=== PATIENT | female | born 1990 | race Asian ===

== ENCOUNTER 2017-08-06 11:13 | Inpatient (IN) | payer OTHER ==
[~2017-08-06] VITALS: Ht 154.9 cm; Wt 60.0 kg
[2017-08-06 11:53] VITALS: BP 119/64
[2017-08-06] MEDS ORDERED: PREN-3 PO (12:00)
[2017-08-06] MEDS: D5%-LACTATED RINGERS 1,000 ML IV SCH ×2 (13:22→21:22)
[2017-08-06] MEDS ORDERED: OXYTOCIN 30U/ 0.9% NaCL 500ML 500 ML IV ONE (13:22)
[2017-08-06] MEDS ORDERED: OXYTOCIN 30U/ 0.9% NaCL 500ML 500 ML IV PRN (13:22)
[2017-08-06] MEDS ORDERED: FENTANYL PF 100 MCG/2ML IVPush PRN (13:30)
[2017-08-06] MEDS ORDERED: SODIUM CITRATE/CITRIC ACID 30 ML UDC PO PRN (13:30)
[2017-08-06] MEDS ORDERED: ONDANSETRON 2MG/ML, 2ML IVPush PRN (13:30)
[2017-08-06] MEDS ORDERED: CALCIUM CARBONATE 500 MG TAB.CHEW PO PRN (13:30)
[2017-08-06] MEDS ORDERED: NEWBORN KIT ONE (13:31)
[2017-08-06] MEDS ORDERED: MISOPROSTOL 200 MCG TABLET ONE (13:31)
[2017-08-06] MEDS ORDERED: LIDOCAINE 1%, 20ML ONE (13:31)
[2017-08-06] MEDS ORDERED: OXYTOCIN 30U/ 0.9% NaCL 500ML 500 ML ONE ×2 (13:31→21:06)
[2017-08-06] MEDS: LACTATED RINGERS 1,000 ML IV SCH ×4 (13:52→22:18)
[2017-08-06 13:53] LABS: HEMATOCRIT 43.3 % (34.6-47.8); HEMOGLOBIN 14.5 g/dL (11.7-16.4); WHITE BLOOD COUNT 12.3 x10^3/uL (3.4-10)
[2017-08-06] MEDS ORDERED: FENTANYL/BUPIV./NS/PF 250 ML EPIDCONT SCH (14:18)
[2017-08-06] MEDS ORDERED: EPHEDRINE 50 MG/ML, 1ML IVPush PRN (14:30)
[2017-08-06] MEDS ORDERED: NALOXONE 0.4 MG/ML, 1ML IVPush PRN (14:30)
[2017-08-06] MEDS ORDERED: LACTATED RINGERS 1,000 ML IVBOLUS PRN (14:30)
[2017-08-06] MEDS ORDERED: BUPIVACAINE/PF 0.25% ONE (15:24)
[2017-08-06] MEDS ORDERED: FENTANYL/BUPIV./NS/PF 250 ML EPIDCONT ONE (15:24)
[2017-08-06] MEDS ORDERED: IBUPROFEN 600 MG TABLET ONE (20:23)
[2017-08-06] MEDS: IBUPROFEN 600 MG TABLET PO PRN (20:26)
[2017-08-06] MEDS ORDERED: ACETAMINOPHEN 325 MG TABLET PO PRN (20:30)
[2017-08-06] MEDS ORDERED: OXYcodone IR 5MG TABLET PO PRN (20:30)
[2017-08-06] MEDS ORDERED: ONDANSETRON 2MG/ML, 2ML IV PRN (20:30)
[2017-08-06] MEDS ORDERED: OXYcodone/APAP 5/325MG TABLET PO PRN (20:30)
[2017-08-06] MEDS ORDERED: DOCUSATE 100 MG CAPSULE PO PRN (20:30)
[2017-08-06] MEDS ORDERED: MISOPROSTOL 200 MCG TABLET SL PRN (20:30)
[2017-08-06] MEDS: OXYTOCIN 30U/ 0.9% NaCL 500ML 500 ML IV SCH (21:10)
[2017-08-06 22:30] VITALS: BP 107/61
[2017-08-07 02:14] VITALS: BP 111/63
[2017-08-07] MEDS: IBUPROFEN 600 MG TABLET PO PRN ×2 (05:30→15:21)
[2017-08-07 06:09] LABS: HEMATOCRIT 41.9 % (34.6-47.8); HEMOGLOBIN 14.2 g/dL (11.7-16.4); WHITE BLOOD COUNT 19.2 x10^3/uL (3.4-10)
[2017-08-07] MEDS: OXYTOCIN 30U/ 0.9% NaCL 500ML 500 ML IV SCH (06:15)
[2017-08-07 06:26] VITALS: BP 115/60
[2017-08-07 06:31] LABS: DIFF TOTAL CELLS COUNTED 100 CELL DIFF
[2017-08-07 06:33] LABS: VERIFY COUNTS? YES
[2017-08-07 07:15] VITALS: BP 106/57
[2017-08-07] MEDS ORDERED: PRENATAL VIT/IRON/FA 1 EACH TABLET PO SCH (09:00)
[2017-08-07] MEDS ORDERED: IBUP-1222 PO (11:16)
[2017-08-07 12:00] VITALS: BP 108/76
== END 2017-08-07 18:20 | disposition home or self-care (01) | DRG 775 ==
LOC: LDOP 11:13 → LDIP 13:49 → 2NW 22:34
PROVIDERS: ADMIT Obstetrics & Gynecology; ATTEND Obstetrics & Gynecology
PROC: 10E0XZZ Delivery of Products of Conception, External Approach (ICD-10-PCS; principal; 2017-08-06)
PROC: 0KQM0ZZ Repair Perineum Muscle, Open Approach (ICD-10-PCS; 2017-08-06)
PROC: 3E0R3BZ Introduction of Anesthetic Agent into Spinal Canal, Percutaneous Approach (ICD-10-PCS; 2017-08-06)
PROC: 00HU33Z Insertion of Infusion Device into Spinal Canal, Percutaneous Approach (ICD-10-PCS; 2017-08-06)
DX: O70.1 Second degree perineal laceration during delivery (principal); Z37.0 Single live birth; Z3A.39 39 weeks gestation of pregnancy
CPT/HCPCS: 36415; 85025; 86850; 86900; J2590; J7120